=== PATIENT | female | born 1970 | race African-American/Black ===

== ENCOUNTER 2020-03-22 13:45 | Emergency (ER) | payer SELFPAY ==
[2020-03-22] MEDS ORDERED: Cyclobenzaprine 10 MG Tab PO ONE (13:46)
[2020-03-22] MEDS ORDERED: Acetaminophen/HYDROcodone 325-5 MG Tab PO ONE (13:46)
[2020-03-22] MEDS ORDERED: Ketorolac 60 MG/2 ML SDV IM ONE (14:21)
[2020-03-22] MEDS ORDERED: Take Home: Cyclobenzaprine 10 MG Tab, 4 Tab Pack PO ONE (14:21)
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
[2020-03-22] MEDS ORDERED: Take Home: Acetaminophen/HYDROcodone 325-5 MG, 2 Tab Pack PO ONE (14:55)
== END 2020-03-22 15:20 | disposition home or self-care (01) ==
LOC: CC.ED 13:45
DX: S39.012A Strain of muscle, fascia and tendon of lower back, initial encounter (principal); S70.02XA Contusion of left hip, initial encounter; I10 Essential (primary) hypertension; E66.9 Obesity, unspecified; Z68.36 Body mass index [BMI] 36.0-36.9, adult; Z79.899 Other long term (current) drug therapy; W18.39XA Other fall on same level, initial encounter; Y99.0 Civilian activity done for income or pay; Y92.129 Unspecified place in nursing home as the place of occurrence of the external cause
CPT/HCPCS: 72100; 73502; 96372; 99283; A9270; J1885